=== PATIENT | male | born 1985 | race Caucasian/White ===

== ENCOUNTER 2017-09-28 05:50 | Day surgery (SDC) | payer OTHER ==
[~2017-09-28] VITALS: Ht 172.7 cm; Wt 73.7 kg
[2017-09-28] MEDS ORDERED: OMEPRAZOLE (07:00)
[2017-09-28] MEDS ORDERED: LEVOTHYROXINE (07:00)
--- NOTE | 2017-09-28 07:49 | OPPN ---
Date/Time of Note Date/Time of Note DATE: 09/28/17 TIME: 07:27 Operative Report Preoperative Diagnosis Abdominal pain Chronic heartburn Postoperative Diagnosis Gastroesophageal reflux disease Gastritis with erosions Operation/Procedure Performed Esophagogastroduodenoscopy and biopsy Surgeon see signature line manager assisted living None Anesthesia: moderate sedation Estimated blood loss: none Transfusion Required none Specimen Gastric mucosal biopsy Grafts/Implants none Complications none SHAHEED SMITH MD Sep 28, 2017 07:49
[2017-09-28] MEDS ORDERED: MIDAZOLAM 1 MG/ML 2 ML INJ ONE (07:54)
[2017-09-28] MEDS ORDERED: FENTAnyl 50 MCG/ML VIAL ONE (07:54)
[2017-09-28 08:06] VITALS: BP 115/75; RESP 14
--- NOTE | 2017-09-28 09:56 | GILP ---
DATE OF PROCEDURE: NAME OF PROCEDURES: Esophagogastroduodenoscopy and biopsy. SURGEON: Shaheed Carl MD PREOPERATIVE DIAGNOSES: 1. Abdominal pain. 2. Chronic heartburn. POSTOPERATIVE DIAGNOSES: 1. Gastroesophageal reflux disease. 2. Gastritis with erosions. 3. Gastric mucosal biopsies were taken for Helicobacter pylori test. INDICATION FOR THE PROCEDURE: Mr. Bharat Munoz is a 31-year-old male patient who had upper abdominal pain and chronic heartburn, not responding to therapy. The patient was scheduled for end oscopic examination for further evaluation. The procedure and possible complications are well explained to the patient. The patient understood and consented to the procedure. DESCRIPTION OF PROCEDURE: Under the influence of fentanyl and Versed, the gastroscope was carefully introduced into the esophagus under direct vision, it was advanced to the stomach and through the p ylorus into the duodenal bulb and descending duodenum. FINDINGS: ESOPHAGUS: The patient had gastroesophageal reflux disease. The esophageal mucosa was normal. STOMACH: The patient had gastritis with erosions. Gastric mucosal biopsies were taken for H. pylor i test. Duodenum was normal. He tolerated the procedure very well and there was no complication from the procedure. At the end o f the procedures, he was awake with stable vital signs and he was discharged home to the care of his family. IMPRESSION: Please see postoperative diagnosis. PLAN: 1. Omeprazole 40 mg p.o. q.a.m. 2. Await H. pylori test. Dictated By: SHAHEED WOLFE/KALPANA Conf#: [id number] DID#: [id number]
--- NOTE | 2017-09-29 13:29 | CONS ---
DATE OF ADMISSION: 09/28/2017 DATE OF CONSULTATION: PATIENT NAME:BHARAT MORRIS PREOPERATIVE GASTROENTEROLOGY CONSULTATION Dear Dr. Ward: I thank you very much for this kind referral. HISTORY OF PRESENT ILLNESS: Mr. Bharat Morris is a 31-year-old male patient who has been referred to me for further evaluation of upper abdominal pain associated with bloating. No past history of peptic ulcer disease. He is not taking any nonsteroidal anti-inflammatory agents. His appetite is good and there is no history of weight loss. No history of gallstones or liver disease. Denies any change in the bowel habit or rectal bleeding. Not a hypertensive or diabetic. No heart disease, l norris problem or kidney disease. He has hypothyroidism. Nonsmoker. No alcohol abuse. No family his tory of gastrointestinal tract neoplasm. NO DRUG ALLERGIES. MEDICATIONS: Levothyroxine. PHYSICAL EXAMINATION: VITAL SIGNS: He is 5 feet 8 inches tall and weighs 169 pounds. HEART: Normal heart sounds. LUNGS: Clear. ABDOMEN: Soft. No masses. Normal bowel sounds. NEUROLOGIC: Normal neurological exam. IMPRESSION: 1. Upper abdominal pain associated with bloating. 2. Chronic heartburn. 3. Hypothyroidism. PLAN: 1. Omeprazole 40 mg p.o. q.a.m. 2. Endoscopic examination for further evaluation. The procedure and possible complications were well explained to the patient, he understands and cons ents to the procedure. I thank you once again. With warmest personal regards, Dictated By: SHAHEED WOLFE/KALPANA Conf#: [id number] [facility]#: [id number] CC: Ed;*EndCC*
== END 2017-09-28 11:39 | disposition home or self-care (01) ==
LOC: GIL 05:50
PROVIDERS: ATTEND Internal Medicine Gastroenterology
DX: K21.9 Gastro-esophageal reflux disease without esophagitis (principal); K29.60 Other gastritis without bleeding; E03.9 Hypothyroidism, unspecified
CPT/HCPCS: 43239; 87081; J2250; J3010; Z7610